=== PATIENT | male | born 1965 | race Caucasian/White ===

== ENCOUNTER → 2016-08-14 | Outpatient (CLI) | payer MEDICAID ==
[~2016-08-14] VITALS: Ht 175.3 cm; Wt 101.9 kg
[~2016-08-14] MED LIST: AMLO-512 PO; ATOR40TA28 PO; CHL25 PO; DOXY100C PO; HUMLIS7525 SQ; INSLAN SQ; LOSA50TA37 PO; METO50 PO; NIZO215C TP
[2016-08-14 09:02] VITALS: BP 101/64
== END | disposition home or self-care (01) ==
LOC: HBOWC 07:19
PROVIDERS: ATTEND Emergency Medicine
DX: E11.621 Type 2 diabetes mellitus with foot ulcer (principal); T81.31XD Disruption of external operation (surgical) wound, not elsewhere classified, subsequent encounter; L97.511 Non-pressure chronic ulcer of other part of right foot limited to breakdown of skin; E11.22 Type 2 diabetes mellitus with diabetic chronic kidney disease; I12.9 Hypertensive chronic kidney disease with stage 1 through stage 4 chronic kidney disease, or unspecified chronic kidney disease; N18.9 Chronic kidney disease, unspecified; E66.9 Obesity, unspecified; E78.5 Hyperlipidemia, unspecified; Z79.4 Long term (current) use of insulin; Z89.512 Acquired absence of left leg below knee; Y83.8 Other surgical procedures as the cause of abnormal reaction of the patient, or of later complication, without mention of misadventure at the time of the procedure
CPT/HCPCS: 87070; 87101; 87147; 87205; 88305; 88312; 97597

== ENCOUNTER → 2016-08-23 | Outpatient (CLI) | payer MEDICAID ==
[2016-08-23 11:44] VITALS: BP 117/73
== END | disposition home or self-care (01) ==
LOC: HBOWC 11:07
PROVIDERS: ATTEND Emergency Medicine
DX: E11.621 Type 2 diabetes mellitus with foot ulcer (principal); L97.511 Non-pressure chronic ulcer of other part of right foot limited to breakdown of skin; E78.5 Hyperlipidemia, unspecified; E11.22 Type 2 diabetes mellitus with diabetic chronic kidney disease; I12.9 Hypertensive chronic kidney disease with stage 1 through stage 4 chronic kidney disease, or unspecified chronic kidney disease; N18.9 Chronic kidney disease, unspecified; E66.9 Obesity, unspecified; Z89.512 Acquired absence of left leg below knee; Z79.4 Long term (current) use of insulin
CPT/HCPCS: 97597

== ENCOUNTER 2019-01-10 15:44 | Emergency (ER) | payer OTHER ==
[~2019-01-10] VITALS: Ht 175.3 cm; Wt 100.0 kg
[~2019-01-10 15:44] MED LIST changes: -AMLO-512 PO; +AMLO10TA7 PO; +ASPI-556 PO; +BUME1TAB34 PO; -CHL25 PO; +CHOL50004 PO; -DOXY100C PO; -LOSA50TA37 PO; -METO50 PO; -NIZO215C TP; +ZARO5 PO
[2019-01-10 16:04] LABS: GLUCOSE,POINT OF CARE 116 MG/DL (70-110)
[2019-01-10] MEDS ORDERED: LINA5TAB PO (16:09)
[2019-01-10] MEDS ORDERED: DULA0.75 IM (16:09)
[2019-01-10] MEDS ORDERED: HYDROmorphone 2 MG/ML SYRINGE IM ONE (17:30)
[2019-01-10] MEDS ORDERED: LORazepam 2 MG TABLET PO ONE (17:30)
[2019-01-10] MEDS ORDERED: DiphenhydrAMINE HCL 50 MG/ML VIAL IM ONE (17:30)
[2019-01-10 19:00] VITALS: BP 135/80
== END 2019-01-10 19:13 | disposition home or self-care (01) ==
LOC: EMS 15:47
DX: G57.92 Unspecified mononeuropathy of left lower limb (principal); E11.9 Type 2 diabetes mellitus without complications; I10 Essential (primary) hypertension; Z79.4 Long term (current) use of insulin; Z79.82 Long term (current) use of aspirin
CPT/HCPCS: 82962; 96372; 99283; J1170; J1200